=== PATIENT | male | born 1965 | race African-American/Black ===

== ENCOUNTER 2021-08-15 12:56 | Emergency (ER) | payer SELFPAY ==
[~2021-08-15] VITALS: Ht 177.8 cm; Wt 80.0 kg
[~2021-08-15 12:56] MED LIST: ALPR0.5T6 PO
[2021-08-15 13:04] VITALS: BP 141/83
--- NOTE | 2021-08-15 13:41 | PHYS DOC ---
Past Medical History Past Medical History: Anxiety Additional Past Medical Histor: PTSD Past Surgical History: No Surgical History Smoking Status: Never Smoker Alcohol Use: None General Adult EDM: Chief Complaint: MEDICATION REFILL HPI: HPI: Patient is a 57 year old male with past medical history including generalized anxiety disorder and PTSD who presents for medication refill. Patient was seen a few weeks ago at the [facility] emergency department and was given 0.5 Xanax prescription for sleep. He presented to the emergency department 1 week ago for refill of this medication until he was able to be seen at [facility] earlier today. Patient did attend his appointment at [facility], where they referred [facility]. He has an appointment scheduled for 08/22/2021 at 2:00 PM, but wishes to have more Xanax until that time. Review of Systems: Review of Systems: ROS negative or noncontributory except as mentioned in HPI. Heart Score: C/O Chest Pain: No Allergies: Allergies: Allergies Coded Allergies Type Severity Reaction Last Updated Verified No Known Drug Allergies 08/09/21 No Physical Exam: PE: Constitutional: Well developed, well nourished, no acute distress, non-toxic appearance. HENT: Normocephalic, atraumatic, bilateral external ears normal, nose normal. Eyes: EOMI, conjunctiva normal, no discharge. Neck: Normal range of motion, no stridor. Skin: Warm, dry, no erythema, no rash. Extremities: No cyanosis, no clubbing, ROM intact, no edema. Neurologic: Alert and oriented x4, normal motor function, normal sensory function, no focal deficits noted. Psychologic: Affect appropriate, fair judgment, mood "I need the medication." Current Patient Data: Vital Signs: Vital Signs Date Time Temp Pulse Resp B/P (MAP) Pulse Ox O2 Delivery O2 Flow Rate FiO2 08/15/21 13:04 97.0 96 20 141/83 (102) 98 97.0 Course & Med Decision Making: Course & Med Decision Making Pertinent Labs and Imaging studies reviewed. (See chart for details) I advised the patient that benzodiazapine medications are not ideal for daily use for generalized anxiety or insomnia. He denies panic disorder. I informed him that I would not represcribe xanax, but I discussed different coping techinques for anxiety and insomnia. I attempted to contact [facility] to see if they could see the patient sooner, but they did not answer numerous calls. I provided the patient with their email address for scheduling and advised that he contact them for an earlier appointment, if available. Return precautions were provided. Patient understands and is agreeable to discharge plan. Dragon Disclaimer: Dragon Disclaimer: This electronic medical record was generated, in whole or in part, using a voice recognition dictation system. Departure Departure Impression: Primary Impression: Anxiety Disposition: 01 HOME / SELF CARE / HOMELESS Condition: STABLE Referrals: UNKNOWN PCP NAME (PCP) Patient Instructions: Anxiety and Panic Attacks, [id number], Insomnia Additional Instructions: EMERGENCY DEPARTMENT GENERAL DISCHARGE INSTRUCTIONS Thank you for coming to [facility] Emergency Department (ED) today and trusting us with you care. We trust that you had a positive experience in our Emergency Department. If you wish to speak to the department management, you may call the director at . YOUR FOLLOW UP INSTRUCTIONS ARE FOLLOWS: 1. Follow up with your primary care doctor. If you do not have a primary doctor, please ask for a resource list of physicians or clinics that may be able to assist you with follow up care. 2. The emergency provider has interpreted your imaging studies, if any were ordered. The radiology curatorial specialist also reviewed them. If there is a change in the findings, you will be notified in 48 hours when at all possible. 3. If a lab test or culture has been done, your results will be reviewed and you will be notified if you need a change in treatment. 4. Follow instructions verbalized to you and refer to the printouts if needed. ADDITIONAL INSTRUCTIONS AND INFORMATION: 1. Your care today has been supervised by a physician who is specially trained in emergency care. Many problems require more than one evaluation for a complete diagnosis and treatment. We recommend that you schedule your follow up appointment as recommended to ensure complete treatment of you illness or injury. If you are unable to obtain follow up care and continue to have a problem, or if your condition worsens, we recommend that you return to the ED. 2. We are not able to safely determine your condition over the phone nor are we able to give sound medical advice over the phone. For these safety reasons, if you call for medical advice we will ask you to come to the ED for further eval uation. 3. If you have any questions regarding these discharge instructions please call the ED at . SAFETY INFORMATION: In the interest of safety, wellness, and injury prevention; we encourage you to wear your seat belt, if you smoke; quite smoking, and we encourage family to use a protective helmet for bicycling and other sporting events that present an increased risk for head injury. IF YOUR SYMPTOMS WORSEN OR NEW SYMPTOMS DEVELOP, OR YOU HAVE CONCERNS ABOUT YOUR CONDITION; OR IF YOUR CONDITION WORSENS WHILE YOU ARE WAITING FOR YOUR FOLLOW UP APPOINTMENT; EITHER CONTACT YOUR PRIMARY CARE DOCTOR, THE PHYSICIAN WHOSE NAME AND NUMBER YOU WERE GIVEN, OR RETURN TO THE ED IMMEDIATELY. CESAR VICTOR August 15, 2021 13:41
[2021-08-15] MEDS ORDERED: ALPRAZolam 0.5 MG TABLET PO ONE (13:45)
== END 2021-08-15 13:51 | disposition home or self-care (01) ==
LOC: ER 12:56
DX: F41.9 Anxiety disorder, unspecified (principal); F43.10 Post-traumatic stress disorder, unspecified
CPT/HCPCS: 99283